=== PATIENT | female | born 1990 ===

== ENCOUNTER 2019-04-28 15:09 | Outpatient (CLI) | payer MEDICAID | END 2019-04-28 16:40 | disposition home or self-care (01) | LOC: LAB 15:09 → TRG 16:20 → LAB 16:40 | PROVIDERS: ATTEND Obstetrics & Gynecology | DX: O26.893 Other specified pregnancy related conditions, third trimester (principal); Z3A.28 28 weeks gestation of pregnancy; Z67.41 Type O blood, Rh negative | CPT/HCPCS: 86850; 86900; 86901; 96372; J2790 ==

== ENCOUNTER 2021-06-14 10:58 | Outpatient (CLI) | payer MEDICAID | END 2021-06-14 10:59 | disposition home or self-care (01) | LOC: LAB 10:58 | PROVIDERS: ATTEND Obstetrics & Gynecology | DX: O26.893 Other specified pregnancy related conditions, third trimester (principal); Z67.41 Type O blood, Rh negative; Z3A.28 28 weeks gestation of pregnancy | CPT/HCPCS: 86850; 86900; 86901; 96372; J2790 ==